=== PATIENT | female | born 1990 | race Caucasian/White ===

== ENCOUNTER 2017-03-06 23:41 | Inpatient (IN) | payer MEDICAID, OTHER ==
[~2017-03-06] VITALS: Ht 162.6 cm; Wt 95.1 kg
[~2017-03-06 23:41] MED LIST: PREN-29 PO
[2017-03-06 23:47] VITALS: Ht 162.6 cm; Wt 95.1 kg
[2017-03-06 23:57] VITALS: BP 136/60; PULSE 75; RESP 18
[2017-03-07] MEDS ORDERED: LIDOCAINE 1% (MPF) 30 ML INJ INJ PRN (00:30)
[2017-03-07] MEDS ORDERED: CARBOPROST 250 MCG INJ IM PRN ×2 (00:30→09:00)
[2017-03-07] MEDS ORDERED: OXYTOCIN 30 UNITS/LR 500 ML IV SCH ×2 (00:30)
[2017-03-07] MEDS ORDERED: METHYLERGONOVINE 0.2 MG INJ IM PRN ×2 (00:30→09:00)
[2017-03-07] MEDS ORDERED: BUTORPHANOL 2 MG INJ IV PRN (00:30)
[2017-03-07] MEDS ORDERED: OXYTOCIN 30 UNITS/LR 500 ML IV PRN ×2 (00:30→09:00)
[2017-03-07] MEDS ORDERED: MISOPROSTOL 200 MCG TAB PR PRN ×2 (00:30→09:00)
[2017-03-07] MEDS ORDERED: AMPICILLIN 2 GM/NS (PMX) 100 ML IV ONE (01:00)
--- NOTE | 2017-03-07 01:09 | HP ---
Date/Time of Note Date/Time of Note DATE: 03/07/17 TIME: 01:03 OB - History Hx of Present Chief Complaint: LOF : 3 Para: 1 Obstetrical Complications: Gestational Diabetes Medical Complications: None Past Family/Social History * Past Medical, Surgical, Family and Obstetric Histories reviewed from chart. GBS Status: Unknown OB Admission Exam Vital Signs Vital Signs Vital Signs Date Time Temp Pulse Resp B/P Pulse Ox O2 Delivery O2 Flow Rate FiO2 03/06/17 23:57 98.0 75 18 136/60 Room Air Physical Exam HEENT: WNL Heart: Rhythm Normal Lungs: Clear Abdomen: WNL Extremities: Normal Cervical Dilatation: 3cm Effacement: 25% Station: -2 Membranes: Ruptured Heart Rate: 140's Accelerations: Accelerations Present Decelerations: No Decelerations Varibility: Moderate OB Assessment/Plan Other Assessment: pprom at 36 weeks Plan: Expectant Management Other plan: Admission US and labs. Get records. Ampicillin for GBS prophylaxis. Pitocin, epidural prn. ANIYAH MOHR Mar 07, 2017 1:09 am
[2017-03-07] MEDS: LACTATED RINGER'S 1,000 ML IV SCH ×3 (01:13→06:59)
[2017-03-07 01:18] LABS: ADD SCAN DIFF NO
[2017-03-07 01:24] LABS: BASOPHILS % 0.1 % (0.0-2.0); EOSINOPHILS % 0.2 % (0.0-7.0); HEMATOCRIT 35.8 % (37.0-47.0); HEMOGLOBIN 11.7 g/dl (12.0-16.0); LYMPHOCYTES # 2.3 10^3/ul (0.8-2.9); LYMPHOCYTES % 25.2 % (15.0-51.0); MEAN CORPUSCULAR HEMOGLOBIN 29.5 pg (29.0-33.0); MEAN CORPUSCULAR HGB CONC 32.7 g/dl (32.0-37.0); MEAN CORPUSCULAR VOLUME 90.4 fl (82.0-101.0); MEAN PLATELET VOLUME 11.2 fl (7.4-10.4); MONOCYTE # 0.5 10^3/ul (0.3-0.9); MONOCYTES % 5.5 % (0.0-11.0); NEUTROPHIL # 6.3 10^3/ul (1.6-7.5); NEUTROPHILS % 68.5 % (39.0-77.0); PLATELET COUNT 208 10^3/UL (140-415); RED BLOOD COUNT 3.96 10^6/ul (4.20-5.40); RED CELL DISTRIBUTION WIDTH 13.4 % (11.5-14.5); WHITE BLOOD COUNT 9.2 10^3/ul (4.8-10.8)
[2017-03-07 01:42] LABS: BARBITURATES Negative (NEGATIVE); BENZODIAZEPINES Negative (NEGATIVE)
--- NOTE | 2017-03-07 01:44 | RADRPT ---
PROCEDURE: ULTRASOUND OBSTETRICAL CLINICAL INDICATION: 26-year-old female in labor for size and date determination. TECHNIQUE: Multiple sonographic images of the pelvis were obtained. The images were reviewed on a PACS workstation. COMPARISON: No prior studies are available for comparison. FINDINGS: The cervix is not well visualized. There is a single viable intrauterine gestation. Cardiac activit y is present with 150 beats per minute. There is a vertex presentation. Measurements were made in or brittnee to determine age. The results are as follows: BPD = 8.84 cm, HC = 31.95 cm, AC = 31.89 cm, FL = 7.03 cm. This yields and estimated gestational ag e of approximately 35 weeks 6 days. The estimated date of delivery is April 05, 2017. The EFW = 2793 +/- 419 g (6 lb 3 oz). The GP is 44%. The placenta is fundal. There is no evidence for an abruption or placenta previa. There is a normal amount of amniotic fluid with an JOBY = 8.0 cm. IMPRESSION: 1. Single viable intrauterine gestation of approximately 35 weeks 6 days with vertex presentation. The estimated date of delivery is April 05, 2017. 2. The estimated weight is 2793 +/- 419 g (6 lb 3 oz). The GP is 44%. .Chang Andrade MD, Date Time Electronically viewed and signed by .Chang Andrade MD, on 03/07/2017 01:43 .M/
[2017-03-07 01:46] LABS: CANNABINOIDS Negative (NEGATIVE); COCAINE Negative (NEGATIVE); OPIATES Negative (NEGATIVE)
[2017-03-07 01:47] LABS: INR 0.95; PARTIAL THROMBOPLASTIN TIME 30.9 Sec (25.0-35.0); PROTIME 12.7 Sec (12.2-14.2)
[2017-03-07] MEDS ORDERED: FENTAnyl 2MCG/ML-ROPIV 0.2% 100 ML ONE (02:22)
--- NOTE | 2017-03-07 03:55 | TRIAGE ---
OB Triage Datetime Report Generated by CPN: 03/07/2017 03:55 Datetime: 03/07/2017 03:32 Vaginal Exam Dilatation (cms): 4.5 Effacement (%): 90 Station: -2 Exam By: GREGORIA Vaginal Bleeding: None Cervix, Consistency: Soft Cervix, Position: Anterior Datetime: 03/07/2017 03:00 Stage of : Labor Labor Evaluation Frequency: 2-4 Monitor Mode: External Duration (sec)2399: 50-90 Quality: Moderate Pattern: Normal: <= 5 Contractions in 10 Minutes Resting Tone [place]: Relaxed Heart Rate FHR Baseline Rate: 140 Monitor Mode: External US Variability: Moderate 6-25 bpm Accelerations: 15X15 Decelerations: None Category: Category I Pain Assessment Pain Scale: 8 Pain Presence: Intermittent Pain Type: Cramping Pain Location: Abdomen Pain Goal: 5 Pain Relief Measures: Comfort Measures Pain Assessment Comments: SITTING FOR EPIDURAL Datetime: 03/07/2017 02:07 Vaginal Exam Dilatation (cms): 4.5 Effacement (%): 90 Station: -2 Exam By: GREGORIA Vaginal Bleeding: None Cervix, Consistency: Soft Cervix, Position: Anterior Datetime: 03/07/2017 02:00 Stage of : Labor Labor Evaluation Frequency: 2-4 Monitor Mode: External Duration (sec)2399: 40-70 Quality: Moderate Pattern: Normal: <= 5 Contractions in 10 Minutes Resting Tone [place]: Relaxed Heart Rate FHR Baseline Rate: 140 Monitor Mode: External US Variability: Moderate 6-25 bpm Accelerations: 15X15 Decelerations: None Category: Category I Pain Assessment Pain Scale: 6 Pain Presence: Intermittent Pain Type: Cramping Pain Location: Abdomen Pain Goal: 5 Pain Relief Measures: Comfort Measures Datetime: 03/07/2017 01:15 Assessment Type: Admission Assessment Vaginal Bleeding: None Maternal Assessment Level of Consciousness: Fully Conscious DTR's/Clonus: DTRs 2+; No Clonus Headache: Denies Blurred Vision: No Respiratory Effort: Unlabored; Regular Rhythm; Equal Expansion Breath Sounds, Left: Clear and Equal Breath Sounds, Right: Clear and Equal Nausea/Vomiting: Denies RUQ Epigastric Pain: Denies Lower Extremities Edema: None Upper Extremities Edema: None Facial Edema: None Fall Risk Assessment History of Falling: (0) No Secondary Diagnosis: (0) No Ambulatory Aid: (0) Bedrest/Nurse Assist IV Therapy: (0) No Gait: (0) Normal/Bedrest/Immobile Mental Status: (0) Oriented to Own Ability Fall Score: 0 Fall Risk Score Definition: No Risk: No action required Pain Assessment Pain Scale: 4 Pain Presence: Intermittent Pain Type: Cramping; Pressure Pain Location: Abdomen Pain Goal: 5 Membrane Status: Ruptured Membranes Ruptured Date/Time: 03/06/2017 22:00 Membranes Rupture Method: Spontaneous Amniotic Fluid Color: Clear Amniotic Fluid Amount: Small Amniotic Fluid Odor: Normal Pool: Positive Nitrazine: Positive ROM Test Kit: DONE, NO RESULT YET Datetime: 03/07/2017 01:00 Stage of : OB Triage Labor Evaluation Frequency: 2-6 Monitor Mode: External Duration (sec)2399: 40-50 Quality: Mild Pattern: Normal: <= 5 Contractions in 10 Minutes Resting Tone [place]: Relaxed Heart Rate FHR Baseline Rate: 140 Monitor Mode: External US Variability: Moderate 6-25 bpm Accelerations: 15X15 Decelerations: None Category: Category I Pain Assessment Pain Scale: 3 Pain Presence: Intermittent Pain Type: Cramping Pain Location: Abdomen Pain Goal: 5 Pain Relief Measures: Comfort Measures Datetime: 03/07/2017 00:30 Stage of : OB Triage Temperature Route: Oral Labor Evaluation Frequency: OCCASS Monitor Mode: External Duration (sec)2399: 40-50 Quality: Mild Pattern: Normal: <= 5 Contractions in 10 Minutes Resting Tone [place]: Relaxed Heart Rate FHR Baseline Rate: 140 Monitor Mode: External US Variability: Moderate 6-25 bpm Accelerations: 15X15 Decelerations: None Category: Category I Pain Presence: None/Denies Datetime: 03/07/2017 00:22 Vaginal Exam Dilatation (cms): 3.0 Effacement (%): 80 Station: -2 Exam By: GREGORIA Cervix, Consistency: Soft Cervix, Position: Anterior Datetime: 03/07/2017 00:18 Membrane Status: Ruptured Membranes Rupture Method: Spontaneous Amniotic Fluid Amount: Small Pool: Positive Nitrazine: Positive Datetime: 03/07/2017 00:00 Assessment Type: Triage Time of Arrival: 03/06/2017 23:37 EGA: 36.0 Arrived By: Wheelchair Arrived From: Home Chief Complaint: LEAKING SINCE 2199 Movement: Present Contractions: Denies/Absent Rupture of Membranes: Ruptured Vaginal Bleeding: None Vaginal Discharge: Present Patient Complaints: None Additional Patient Complaints: ELEVATED GLUCOSE LAST 2 VISITS, DOING, FASTING AND 2 HR PP ACCU XOCHITL CK Time Provider Notified: 03/07/2017 00:12 Provider Notified: UAJE Initial Plan: EFM, ASSESSMENT, CALL MD FOR ORDERS Maternal Assessment Level of Consciousness: Fully Conscious DTR's/Clonus: DTRs 2+; No Clonus Headache: Denies Blurred Vision: No Respiratory Effort: Unlabored; Regular Rhythm; Equal Expansion Breath Sounds, Left: Clear and Equal Breath Sounds, Right: Clear and Equal Nausea/Vomiting: Denies RUQ Epigastric Pain: Denies Lower Extremities Edema: None (Annotations: OBESE PT.) Upper Extremities Edema: None Facial Edema: None Fall Risk Assessment History of Falling: (0) No Secondary Diagnosis: (0) No Ambulatory Aid: (0) Bedrest/Nurse Assist IV Therapy: (0) No Gait: (0) Normal/Bedrest/Immobile Mental Status: (0) Oriented to Own Ability Fall Score: 0 Fall Risk Score Definition: No Risk: No action required Datetime: 03/06/2017 23:59 Presentation 'A': Cephalic
[2017-03-07] MEDS ORDERED: NALOXONE (0.4 MG/ML) INJ IV PRN (05:00)
[2017-03-07] MEDS ORDERED: ONDANSETRON 4 MG INJ IV PRN ×2 (05:00→09:00)
[2017-03-07] MEDS ORDERED: AMPICILLIN 1 GM/NS (PMX) 50 ML IV SCH (05:00)
[2017-03-07] MEDS ORDERED: LACTATED RINGER'S 1,000 ML IV PRN (05:00)
[2017-03-07] MEDS ORDERED: DIPHENHYDRAMINE 50 MG INJ IV PRN (05:00)
[2017-03-07] MEDS ORDERED: FENTAnyl 2MCG/ML-ROPIV 0.2% 100 ML BAG EPI SCH (05:00)
--- NOTE | 2017-03-07 08:32 | LDN ---
Date/Time of Note Date/Time of Note DATE: 03/07/17 TIME: 08:28 Delivery Summary Baby weight 5 lbs. 7 oz. Weeks of Gestation 36 Placenta Delivered: Spontaneously Meconium: none Episiotomy: No Laceration repair: Superficial perineal laceration repaired with 3-0 chromic Anesthesia type: Epidural Estimated blood loss: 100 Sponge & Needle done & correct: Yes All needle counts correct: Yes Any foreign bodies felt in the: No Problems: Infant Delivery Information Apgars 1 Minute: 9 5 Minute: 9 Suctioning Nose & mouth suctioned at adi: Yes Umbilical Cord Umbilical cord with: 3 Vessels Cord presentations: no nuchal cord Cord Blood was obtained: Yes KAREL JORGE MD Mar 07, 2017 08:31
[2017-03-07] MEDS ORDERED: LACTATED RINGER'S 1,000 ML IV* SCH (08:33)
[2017-03-07] MEDS: OXYTOCIN 30 UNITS/LR 500 ML IV SCH ×2 (08:44→12:21)
[2017-03-07] MEDS ORDERED: WITCH HAZEL/GLYCERIN PAD PR PRN (09:00)
[2017-03-07] MEDS ORDERED: MAGNESIUM HYDROXIDE 30ML CUP PO PRN (09:00)
[2017-03-07] MEDS ORDERED: SENNA/DOCUSATE NA (8.6MG/50MG) TAB PO PRN (09:00)
[2017-03-07] MEDS ORDERED: BENZOCAINE 20% 56 ML SPRAY TOP PRN (09:00)
[2017-03-07] MEDS ORDERED: IBUPROFEN 600 MG TAB PO PRN (09:00)
[2017-03-07] MEDS ORDERED: LANOLIN 7 GM TUBE TOP PRN (09:00)
[2017-03-07] MEDS ORDERED: ACETAMINOPHEN 325 MG TAB PO PRN (09:00)
[2017-03-07] MEDS ORDERED: DIBUCAINE 1% 30 GM OINT PR PRN (09:00)
[2017-03-07 10:30] VITALS: BP 122/60; PULSE 62
[2017-03-07 11:00] VITALS: BP 116/55; PULSE 59; RESP 16
[2017-03-07 12:00] VITALS: BP 118/63; PULSE 62; RESP 16
[2017-03-07 16:00] VITALS: BP 117/54; PULSE 60; RESP 17
[2017-03-07 20:40] VITALS: BP 129/71; PULSE 64; RESP 19
[2017-03-08] MEDS: IBUPROFEN 600 MG TAB PO PRN (02:44)
[2017-03-08 04:29] VITALS: BP 107/54; PULSE 71; RESP 19
[2017-03-08 07:53] LABS: ADD SCAN DIFF NO
[2017-03-08 08:00] LABS: BASOPHILS % 0.2 % (0.0-2.0); EOSINOPHILS % 0.4 % (0.0-7.0); HEMATOCRIT 32.8 % (37.0-47.0); LYMPHOCYTES # 2.7 10^3/ul (0.8-2.9); LYMPHOCYTES % 27.6 % (15.0-51.0); MEAN CORPUSCULAR HEMOGLOBIN 30.6 pg (29.0-33.0); MEAN CORPUSCULAR HGB CONC 33.5 g/dl (32.0-37.0); MEAN CORPUSCULAR VOLUME 91.4 fl (82.0-101.0); MEAN PLATELET VOLUME 11.6 fl (7.4-10.4); MONOCYTE # 0.6 10^3/ul (0.3-0.9); MONOCYTES % 5.7 % (0.0-11.0); NEUTROPHIL # 6.3 10^3/ul (1.6-7.5); NEUTROPHILS % 65.6 % (39.0-77.0); PLATELET COUNT 197 10^3/UL (140-415); RED BLOOD COUNT 3.59 10^6/ul (4.20-5.40); RED CELL DISTRIBUTION WIDTH 13.5 % (11.5-14.5); WHITE BLOOD COUNT 9.6 10^3/ul (4.8-10.8)
[2017-03-08 08:22] VITALS: BP 88/48; PULSE 57; RESP 17
--- NOTE | 2017-03-08 13:50 | QN ---
Documentation Comment No complaint Afebrile VSS Fundus Firm Lochia Scant PPD #1 Stable Continue care. STACY DONATO MD Mar 08, 2017 13:50
[2017-03-08 16:00] VITALS: BP 120/66; PULSE 62; RESP 16
[2017-03-08 20:00] VITALS: BP 114/59; PULSE 56; RESP 17
[2017-03-09 04:00] VITALS: BP 114/56; PULSE 54; RESP 18
[2017-03-09 08:15] VITALS: BP 113/58; PULSE 58; RESP 16
[2017-03-09] MEDS ORDERED: MEASLES,MUMPS,RUBELLA VACCINE INJ SC* ONE (09:00)
[2017-03-09] MEDS: IBUPROFEN 600 MG TAB PO PRN (12:17)
--- NOTE | 2017-03-09 13:22 | DS ---
Date/Time of Note Date/Time of Note DATE: 03/09/17 TIME: 13:20 Discharge Summary Admission/Discharge Info Admit Date/Time Mar 07, 2017 at 00:48 Discharge Date/Time March 09 at 1400 Final Diagnosis Term normal vaginal delivery Patient Condition: Good Procedures Normal vaginal delivery Hx of Present Illness full-term in labor Hospital Course Satisfactory uneventful Home Meds Reported Medications Vit-Fe Fumarate-FA* (Nilay Tablet*) 1 Tab Tablet, 1 TAB PO DAILY, TAB 08/30/14 Follow-up Plan instructions for diet activity and medication recommended to make appointment with the clinic in 2 weeks MONICA SNOW MD Mar 09, 2017 13:22
== END 2017-03-09 15:10 | disposition home or self-care (01) | DRG 775 ==
LOC: OBT 23:41 → L-D 23:43 → OBT 03-07 00:48 → L-D 03-07 02:08 → PP1 03-07 10:26
PROVIDERS: ADMIT Obstetrics & Gynecology; ATTEND Obstetrics & Gynecology
PROC: 10E0XZZ Delivery of Products of Conception, External Approach (ICD-10-PCS; principal; 2017-03-07)
PROC: 0HQ9XZZ Repair Perineum Skin, External Approach (ICD-10-PCS; 2017-03-07)
PROC: 4A1HX4Z Monitoring of Products of Conception, Cardiac Electrical Activity, External Approach (ICD-10-PCS; 2017-03-07)
DX: O24.420 Gestational diabetes mellitus in childbirth, diet controlled (principal); O60.14X0 Preterm labor third trimester with preterm delivery third trimester, not applicable or unspecified; O70.0 First degree perineal laceration during delivery; Z3A.36 36 weeks gestation of pregnancy; Z37.0 Single live birth
CPT/HCPCS: 36415; 62319; 76815; 80307; 82947; 82962; 84112; 85025; 85610; 85730; 86592; 86900; 86901; 87340; 96360; G0463; J0290; J2590; J3010; J7120

== ENCOUNTER 2018-03-16 05:25 | Inpatient (IN) | END 2018-03-18 16:30 | disposition home or self-care (01) | DRG 775 ==